=== PATIENT | female | born 1950 ===

== ENCOUNTER 2021-08-29 06:05 | Day surgery (SDC) | payer OTHER ==
[~2021-08-29] VITALS: Ht 160 cm; Wt 35.4 kg
[~2021-08-29 06:05] MED LIST: CLONAZEPAM0.5 MG PO
== END 2021-08-29 13:25 | disposition home or self-care (01) ==
LOC: CIR.AMB 06:05
PROVIDERS: ATTEND Colon & Rectal Surgery
DX: R15.9 Full incontinence of feces (principal); Z87.891 Personal history of nicotine dependence; Z20.822 Contact with and (suspected) exposure to COVID-19
CPT/HCPCS: 64581; 95971; C1778

== ENCOUNTER 2021-09-12 06:11 | Day surgery (SDC) | payer OTHER | END 2021-09-12 11:00 | disposition home or self-care (01) | LOC: CIR.AMB 06:11 | PROVIDERS: ATTEND Colon & Rectal Surgery | DX: R15.9 Full incontinence of feces (principal); Z20.822 Contact with and (suspected) exposure to COVID-19; F17.210 Nicotine dependence, cigarettes, uncomplicated; F32.A Depression, unspecified | CPT/HCPCS: 64581; 64590; 95972; C1767; C1778 ==

== ENCOUNTER 2023-05-28 08:42 | Day surgery (SDC) | payer OTHER ==
[2023-05-28] MEDS ORDERED: LIDOCAINE HCL 1%/Epi 20ML VIAL IJ ONE (18:27)
[2023-05-28] MEDS ORDERED: BUPIVACAINE HCL/PF 0.5% 30ML ML ONE (18:27)
[2023-05-28] MEDS ORDERED: CEFAZOLIN SODIUM 1,000 MG VIAL ONE (18:27)
[2023-05-28] MEDS ORDERED: CEFAZOLIN SODIUM 1,000 MG VIAL IV ONE (19:15)
[2023-05-28] MEDS ORDERED: BUPIVACAINE HCL 30 ML VIAL IJ ONE ×2 (19:15)
== END 2023-05-28 21:10 | disposition home or self-care (01) ==
LOC: CIR.AMB 08:42 → SURH 11:15 → CIR.AMB 11:15 → EDSTATUS 11:15 → CIR.AMB 21:10
PROVIDERS: ATTEND Colon & Rectal Surgery
DX: R15.9 Full incontinence of feces (principal); Z20.822 Contact with and (suspected) exposure to COVID-19